=== PATIENT | male | born 2000 | race Caucasian/White ===

== ENCOUNTER 2023-03-18 14:16 | Emergency (ER) | payer SELFPAY ==
[~2023-03-18] VITALS: Ht 185.4 cm; Wt 100.0 kg
[2023-03-18 14:19] VITALS: BP 150/78; TEMP 98.2
[2023-03-18] MEDS ORDERED: PERCOCET 325 MG1 TA2 PO (15:13)
[2023-03-18 15:40] VITALS: PULSE 70
== END 2023-03-18 15:40 | disposition home or self-care (01) ==
LOC: COL.ER 14:16
DX: S92.414A Nondisplaced fracture of proximal phalanx of right great toe, initial encounter for closed fracture (principal); W23.0XXA Caught, crushed, jammed, or pinched between moving objects, initial encounter; Y92.59 Other trade areas as the place of occurrence of the external cause; Y99.0 Civilian activity done for income or pay